=== PATIENT | male | born 1975 | race Caucasian/White ===

== ENCOUNTER → 2017-10-12 | Outpatient (CLI) | payer MEDICAID ==
--- NOTE | 2017-10-12 15:10 | RAD ---
Indication: Cough. Time of exam 1500 hours. Comparison is made with prior chest from 07/16/2005. The heart size is stable. There may be some minimal infiltrate in the left base. Otherwise the lungs are clear. Pulmonary vascularity is normal. No effusion or pneumothorax is seen. Impression: Minimal left basilar infiltrate or atelectasis.
== END | disposition home or self-care (01) ==
LOC: PMG 14:52
PROVIDERS: ATTEND Physician Assistant
DX: R05 Cough (principal)
CPT/HCPCS: 71020